=== PATIENT | male | born 1940 | race Caucasian/White ===

== ENCOUNTER 2017-07-02 02:41 | Emergency (ER) | payer MEDICARE, BC ==
[2017-07-02 03:05] VITALS: BP 129/90
[2017-07-02 03:39] LABS: CHLORIDE,CL 105 mmol/L (101-111); SODIUM,NA 140 mmol/L (135-145)
--- NOTE | 2017-07-02 04:47 | EDM.PDOC ---
ED HPI GENERAL MEDICAL PROBLEM - General Chief Complaint: Cardiovascular Problem Stated Complaint: SHORTNESS OF BREATH, DIZZY, NECK STIFFNESS Time Seen by Provider: 07/02/17 03:30 Source of Information: Reports: Patient History Limitations: Reports: No Limitations - History of Present Illness INITIAL COMMENTS - FREE TEXT/NARRATIVE: This 77 yo male patient reports to the ED with increased shortness of breath, neck stiffness and increased swelling in his lower extremities. The patient reports he was recently diagnosed with A fib and is on medications for control. The patient has an appointment with cardiology in 2 weeks for continued evaluation and further management. Onset: Today Duration: Constant, Improving Location: Reports: Neck, Chest Quality: Reports: Ache, Dull, Pressure Severity: Moderate Improves with: Reports: None Worsens with: Reports: None Associated Symptoms: Reports: No Other Symptoms Neck Pain Score (Numeric/FACES): 6 - Related Data Allergies Allergy/AdvReac Type Severity Reaction Status Date / Time No Known Allergies Allergy Verified 07/02/17 03:00 Home Meds: Home Meds Aspirin [Ecotrin] 81 mg PO .3 TIMES WEEKLY 06/21/14 [History] Doxazosin [Doxazosin Mesylate] 4 mg PO DAILY 06/21/14 [History] Finasteride [Proscar] 5 mg PO DAILY 06/21/14 [History] Lisinopril 40 mg PO DAILY 06/21/14 [History] NIFEdipine [Adalat cc] 60 mg PO DAILY 06/21/14 [History] Rosuvastatin [Crestor] 2.5 mg PO BEDTIME 06/21/14 [History] glyBURIDE [Glyburide] 5 mg PO DAILY 06/21/14 [History] Metoprolol Succinate [Toprol XL] 50 mg PO DAILY 07/02/17 [History] Rivaroxaban [Xarelto] 20 mg PO DAILY 07/02/17 [History] Past Medical History Cardiovascular History: Reports: High Cholesterol, Hypertension Respiratory History: Reports: None Gastrointestinal History: Reports: None Genitourinary History: Reports: None Musculoskeletal History: Reports: None Neurological History: Reports: None Psychiatric History: Reports: None Endocrine/Metabolic History: Reports: Diabetes, Type II Hematologic History: Reports: None Immunologic History: Reports: None Oncologic (Cancer) History: Reports: None Dermatologic History: Reports: None - Infectious Disease History Infectious Disease History: Reports: None - Past Surgical History Head Surgeries/Procedures: Reports: None Social & Family History - Tobacco Use Smoking Status *Q: Never Smoker Second Hand Smoke Exposure: No - Caffeine Use Caffeine Use: Reports: Coffee - Alcohol Use Days Per Week of Alcohol Use: 4 Number of Drinks Per Day: 3 Total Drinks Per Week: 12 - Recreational Drug Use Recreational Drug Use: No ED ROS GENERAL - Review of Systems Review Of Systems: ROS reveals no pertinent complaints other than HPI. ED EXAM, GENERAL - Physical Exam Exam: See Below Exam Limited By: No Limitations General Appearance: Alert, WD/WN, Moderate Distress Eye Exam: Bilateral Eye: EOMI, Normal Inspection, PERRL Ears: Normal External Exam, Normal Canal, Hearing Grossly Normal, Normal TMs Nose: Normal Inspection, Normal Mucosa, No Blood Throat/Mouth: Normal Inspection, Normal Lips, Normal Teeth, Normal Gums, Normal Oropharynx, Normal Voice, No Airway Compromise Head: Atraumatic, Normocephalic Neck: Normal Inspection, Supple, Non-Tender, Full Range of Motion Respiratory/Chest: No Respiratory Distress, Lungs Clear, Normal Breath Sounds, No Accessory Muscle Use, Chest Non-Tender Cardiovascular: No Gallop, No JVD, No Murmur, No Rub, Irregularly Irregular GI/Abdominal: Normal Bowel Sounds, Soft, Non-Tender, No Organomegaly, No Distention, No Abnormal Bruit, No Mass (Male) Exam: Deferred Rectal (Males) Exam: Deferred Back Exam: Normal Inspection, Full Range of Motion, NT Extremities: Normal Range of Motion, Non-Tender, Normal Capillary Refill, Pedal Edema (2+) Neurological: Alert, Oriented, CN II-XII Intact, Normal Cognition, Normal Gait, Normal Reflexes, No Motor/Sensory Deficits Psychiatric: Normal Affect, Normal Mood Skin Exam: Warm, Dry, Intact, Normal Color, No Rash Lymphatic: No Adenopathy Course - Vital Signs Last Recorded V/S: Last Vital Signs Temp 35.7 C 07/02/17 03:01 Pulse 137 H 07/02/17 03:01 Resp 18 07/02/17 03:01 BP 129/90 07/02/17 03:01 Pulse Ox 100 07/02/17 03:01 - Orders/Labs/Meds Orders: Active Orders 24 hr Category Date Time Status EKG 12 Lead [EKG Documentation Completion] [RC] STAT Care 07/02/17 03:21 Active Labs: Laboratory Tests 07/02/17 07/02/17 07/02/17 Range/Units 03:15 03:15 03:15 WBC 7.0 (5.0-10.0) 10^3/uL RBC 5.31 (4.6-6.2) 10^6/uL Hgb 15.5 (14.0-18.0) g/dL Hct 46.6 (40.0-54.0) % MCV 87.8 (80-100) fL MCH 29.2 (27.0-34.0) pg MCHC 33.3 (33.0-35.0) g/dL Plt Count 147 L (150-450) 10^3/uL Neut % (Auto) 66.3 (42.2-75.2) % Lymph % (Auto) 22.5 (20.5-50.1) % [place] % (Auto) 8.5 H (2-8) % Eos % (Auto) 2.4 (1.0-3.0) % Baso % (Auto) 0.3 (0.0-1.0) % Sodium 140 (135-145) mmol/L Potassium 4.2 (3.6-5.0) mmol/L Chloride 105 (101-111) mmol/L Carbon Dioxide 26.0 (21.0-31.0) mmol/L Anion Gap 13.2 BUN 18 (7-18) mg/dL Creatinine 0.9 (0.6-1.3) mg/dL Est Cr Clr Drug Dosing TNP Estimated GFR (MDRD) > 60 BUN/Creatinine Ratio 20.00 Glucose 153 H (74-105) mg/dL Calcium 8.9 (8.4-10.2) mg/dl Total Bilirubin 1.0 (0.2-1.0) mg/dL AST 21 (10-42) IU/L ALT 24 (10-60) IU/L Alkaline Phosphatase 38 L (42-121) IU/L Troponin I 0.02 (0.00-0.02) ng/ml B-Natriuretic Peptide 259 H (0-100) pg/ml Total Protein 7.2 (6.7-8.2) g/dl Albumin 4.2 (3.2-5.5) g/dl Globulin 3.0 Albumin/Globulin Ratio 1.40 Departure - Departure Time of Disposition: 04:43 Disposition: Home, Self-Care 01 Condition: Fair Clinical Impression: Shortness of breath Instructions: Shortness of Breath, [id number] Forms: ED Department Discharge Care Plan Goals: The patient was advised of the examination, lab and EKG results during the visit. The patient was encouraged to take his medications as directed. The patient should see the sound mixer as previously scheduled. If the patient has any additional symptoms or further concerns, the patient should either follow- up with his primary care provider or return to the emergency department. - My Orders Last 24 Hours: My Active Orders 07/02/17 03:21 EKG 12 Lead [EKG Documentation Completion] [RC] STAT - Assessment/Plan Last 24 Hours: My Active Orders 07/02/17 03:21 EKG 12 Lead [EKG Documentation Completion] [RC] STAT
--- NOTE | 2017-07-05 09:53 | EKG ---
07/02/2017- CHRISTEL GARCIA - EKG per my reading shows rapid atrial fibrillation at the rate of 120s. MOD /[id number]
== END 2017-07-02 04:53 | disposition home or self-care (01) ==
LOC: DL.ED 02:41
DX: R06.02 Shortness of breath (principal); E78.00 Pure hypercholesterolemia, unspecified; I10 Essential (primary) hypertension; E11.9 Type 2 diabetes mellitus without complications; Z79.82 Long term (current) use of aspirin; Z79.899 Other long term (current) drug therapy
CPT/HCPCS: 36415; 80053; 83880; 84484; 85025; 93005; 93010; 99282; 99285

== ENCOUNTER 2017-08-12 11:37 | Inpatient (IN) | payer MEDICARE, BC ==
--- NOTE | 2017-08-12 11:31 | EDM.PDOC ---
ED HPI GENERAL MEDICAL PROBLEM - General Chief Complaint: Cardiovascular Problem Stated Complaint: CHF. COMING FROM [facility] Time Seen by Provider: 08/12/17 11:30 Source of Information: Reports: Patient History Limitations: Reports: No Limitations - History of Present Illness INITIAL COMMENTS - FREE TEXT/NARRATIVE: 77 yo white male came from medical provider Dr. James for addmission for increase fluid retention. Pt. c/o SOB w/ Bilat leg edema X one month Onset Date: 07/12/17 Onset Time: 12:00 Duration: Week(s):, Getting Worse Location: Reports: Generalized Severity: Moderate Associated Symptoms: Reports: Other (edema and SOB) - Related Data Allergies Allergy/AdvReac Type Severity Reaction Status Date / Time No Known Allergies Allergy Verified 07/02/17 03:00 Home Meds: Home Meds Doxazosin [Doxazosin Mesylate] 4 mg PO DAILY 06/21/14 [History] Finasteride [Proscar] 5 mg PO DAILY 06/21/14 [History] Lisinopril 40 mg PO DAILY 06/21/14 [History] NIFEdipine [Adalat cc] 60 mg PO DAILY 06/21/14 [History] Rosuvastatin [Crestor] 2.5 mg PO BEDTIME 06/21/14 [History] glyBURIDE [Glyburide] 5 mg PO DAILY 06/21/14 [History] Metoprolol Succinate [Toprol XL] 100 mg PO DAILY 07/02/17 [History] Rivaroxaban [Xarelto] 20 mg PO DAILY 07/02/17 [History] Past Medical History Cardiovascular History: Reports: High Cholesterol, Hypertension Respiratory History: Reports: None Gastrointestinal History: Reports: None Genitourinary History: Reports: None Musculoskeletal History: Reports: None Neurological History: Reports: None Psychiatric History: Reports: None Endocrine/Metabolic History: Reports: Diabetes, Type II Hematologic History: Reports: None Immunologic History: Reports: None Oncologic (Cancer) History: Reports: None Dermatologic History: Reports: None - Infectious Disease History Infectious Disease History: Reports: None - Past Surgical History Head Surgeries/Procedures: Reports: None Social & Family History - Tobacco Use Smoking Status *Q: Never Smoker Second Hand Smoke Exposure: No - Caffeine Use Caffeine Use: Reports: Coffee - Alcohol Use Days Per Week of Alcohol Use: 4 Number of Drinks Per Day: 3 Total Drinks Per Week: 12 - Recreational Drug Use Recreational Drug Use: No ED ROS GENERAL - Review of Systems Review Of Systems: See Below Constitutional: Reports: No Symptoms HEENT: Reports: No Symptoms Respiratory: Reports: Shortness of Breath Cardiovascular: Reports: No Symptoms Endocrine: Reports: No Symptoms GI/Abdominal: Reports: Distension : Reports: No Symptoms Musculoskeletal: Reports: No Symptoms Skin: Reports: No Symptoms Neurological: Reports: No Symptoms Psychiatric: Reports: No Symptoms Hematologic/Lymphatic: Reports: No Symptoms Immunologic: Reports: No Symptoms ED EXAM, GENERAL - Physical Exam Exam: See Below Exam Limited By: No Limitations General Appearance: No Apparent Distress Eye Exam: Bilateral Eye: EOMI, PERRL Ears: Normal External Exam Nose: Normal Inspection Throat/Mouth: Normal Inspection, Normal Lips Head: Atraumatic, Normocephalic Neck: Normal Inspection, Supple, Non-Tender Respiratory/Chest: No Respiratory Distress, Lungs Clear, Normal Breath Sounds, No Accessory Muscle Use Cardiovascular: Irregularly Irregular Peripheral Pulses: 2+: Femoral (L), Femoral (R) GI/Abdominal: Distended (Male) Exam: No Hernia, Normal Inspection Back Exam: Normal Inspection Extremities: Pedal Edema (2-3 +) Neurological: Alert, Oriented, CN II-XII Intact, Normal Cognition Psychiatric: Normal Affect, Normal Mood Skin Exam: Warm, Dry, Intact Lymphatic: No Adenopathy Course - Vital Signs Last Recorded V/S: Last Vital Signs Temp 36.2 C 08/12/17 11:37 Pulse 119 H 08/12/17 11:37 Resp 18 08/12/17 11:37 BP 125/75 08/12/17 11:37 Pulse Ox 95 08/12/17 11:37 - Orders/Labs/Meds Orders: Active Orders 24 hr Category Date Time Status EKG 12 Lead [EKG Documentation Completion] [RC] STAT Care 08/12/17 12:15 Active Sodium Chloride 0.9% [Normal Saline] 1,000 ml Med 08/12/17 11:45 Active IV ASDIRECTED Medication Orders Sodium Chloride (Normal Saline) 1,000 mls @ 40 mls/hr IV ASDIRECTED KI Stop: 08/16/17 11:36 Last Admin: 08/12/17 11:54 Dose: 40 mls/hr Labs: Laboratory Tests 08/12/17 08/12/17 08/12/17 Range/Units 11:52 11:52 11:52 WBC 8.9 (5.0-10.0) 10^3/uL RBC 5.18 (4.6-6.2) 10^6/uL Hgb 14.8 (14.0-18.0) g/dL Hct 44.9 (40.0-54.0) % MCV 86.7 (80-100) fL MCH 28.6 (27.0-34.0) pg MCHC 33.0 (33.0-35.0) g/dL Plt Count 191 (150-450) 10^3/uL Neut % (Auto) 76.7 H (42.2-75.2) % Lymph % (Auto) 16.7 L (20.5-50.1) % [place] % (Auto) 5.5 (2-8) % Eos % (Auto) 0.9 L (1.0-3.0) % Baso % (Auto) 0.2 (0.0-1.0) % PT 13.3 H (9.0-12.0) SEC INR 1.3 H (0.9-1.2) APTT 30.5 (22.0-34.0) SEC D-Dimer, Quantitative 531 H (0-400) ng/mL Sodium 140 (135-145) mmol/L Potassium 4.0 (3.6-5.0) mmol/L Chloride 106 (101-111) mmol/L Carbon Dioxide 24.0 (21.0-31.0) mmol/L Anion Gap 14.0 BUN 21 H (7-18) mg/dL Creatinine 1.1 (0.6-1.3) mg/dL Est Cr Clr Drug Dosing TNP Estimated GFR (MDRD) > 60 BUN/Creatinine Ratio 19.09 Glucose 127 H (74-105) mg/dL Calcium 8.7 (8.4-10.2) mg/dl Total Bilirubin 0.8 (0.2-1.0) mg/dL AST 19 (10-42) IU/L ALT 22 (10-60) IU/L Alkaline Phosphatase 46 (42-121) IU/L Troponin I (0.00-0.02) ng/ml B-Natriuretic Peptide 365 H (0-100) pg/ml Total Protein 7.3 (6.7-8.2) g/dl Albumin 4.0 (3.2-5.5) g/dl Globulin 3.3 Albumin/Globulin Ratio 1.21 08/12/17 Range/Units 11:52 WBC (5.0-10.0) 10^3/uL RBC (4.6-6.2) 10^6/uL Hgb (14.0-18.0) g/dL Hct (40.0-54.0) % MCV (80-100) fL MCH (27.0-34.0) pg MCHC (33.0-35.0) g/dL Plt Count (150-450) 10^3/uL Neut % (Auto) (42.2-75.2) % Lymph % (Auto) (20.5-50.1) % [place] % (Auto) (2-8) % Eos % (Auto) (1.0-3.0) % Baso % (Auto) (0.0-1.0) % PT (9.0-12.0) SEC INR (0.9-1.2) APTT (22.0-34.0) SEC D-Dimer, Quantitative (0-400) ng/mL Sodium (135-145) mmol/L Potassium (3.6-5.0) mmol/L Chloride (101-111) mmol/L Carbon Dioxide (21.0-31.0) mmol/L Anion Gap BUN (7-18) mg/dL Creatinine (0.6-1.3) mg/dL Est Cr Clr Drug Dosing Estimated GFR (MDRD) BUN/Creatinine Ratio Glucose (74-105) mg/dL Calcium (8.4-10.2) mg/dl Total Bilirubin (0.2-1.0) mg/dL AST (10-42) IU/L ALT (10-60) IU/L Alkaline Phosphatase (42-121) IU/L Troponin I < 0.02 (0.00-0.02) ng/ml B-Natriuretic Peptide (0-100) pg/ml Total Protein (6.7-8.2) g/dl Albumin (3.2-5.5) g/dl Globulin Albumin/Globulin Ratio Meds: Medications Generic Name Dose Route Start Last Admin Trade Name Freq PRN Reason Stop Dose Admin Sodium Chloride 1,000 mls @ 40 mls/hr 09/15/17 11:45 08/12/17 11:54 Normal Saline IV 08/16/17 11:36 40 mls/hr ASDIRECTED KI Administration Discontinued Medications Generic Name Dose Route Start Last Admin Trade Name Jesus PRN Reason Stop Dose Admin Furosemide 40 mg 08/12/17 12:48 08/12/17 12:52 Lasix IVPUSH 08/12/17 12:49 40 mg NOW ONE Administration Departure - Departure Time of Disposition: 13:26 Disposition: Admitted As Inpatient 65 Condition: Fair Clinical Impression: CHF (congestive heart failure) Qualifiers: Congestive heart failure type: diastolic Congestive heart failure chronicity: acute Qualified Code(s): I50.31 - Acute diastolic (congestive) heart failure Clinical Impression: (Ruled Out): Change in mental status Referrals: Damian Aguilera MD [Primary Care Provider] - Forms: ED Department Discharge - My Orders Last 24 Hours: My Active Orders 08/12/17 11:45 Sodium Chloride 0.9% [Normal Saline] 1,000 ml IV ASDIRECTED 08/12/17 12:15 EKG 12 Lead [EKG Documentation Completion] [RC] STAT - Assessment/Plan Last 24 Hours: My Active Orders 08/12/17 11:45 Sodium Chloride 0.9% [Normal Saline] 1,000 ml IV ASDIRECTED 08/12/17 12:15 EKG 12 Lead [EKG Documentation Completion] [RC] STAT
[2017-08-12] MEDS ORDERED: Sodium Chloride 0.9% 1,000 ML IV SCH (11:45)
[2017-08-12 12:17] LABS: CHLORIDE,CL 106 mmol/L (101-111); SODIUM,NA 140 mmol/L (135-145)
--- NOTE | 2017-08-12 12:31 | CR ---
CLINICAL HISTORY: PA lateral chest 77-year-old hypertensive, diabetic male with shortness of breath f or the past month (pedal edema). INTERPRETATION: Abnormal. Large heart with generalized mild venous congestion (cephalization) and pleural effusion on the right . No alveolar edema. No lung mass, hilar lymphadenopathy or focal lobar pneumonia. CONCLUSION: Mild CHF.
[2017-08-12] MEDS ORDERED: Furosemide 40 MG/4 ML VIAL IVPUSH ONE (12:48)
[2017-08-12] MEDS ORDERED: Sodium Chloride 0.9% 10 ML Syringe FLUSH PRN (13:55)
[2017-08-12] MEDS ORDERED: Acetaminophen 325 MG Tab PO PRN (13:55)
[2017-08-12] MEDS ORDERED: Metoprolol Succinate 50 MG Tab.ER PO ONE (17:03)
--- NOTE | 2017-08-12 18:03 | HP ---
CHIEF COMPLAINT: Fluid retention and shortness of breath. HISTORY OF PRESENT ILLNESS: The patient is a 77-year-old gentleman, who was admitted through the emergency room because for the last one week, he has been having some fluid retention and weight gain, and the patient was seen by Dr. Melissa at the clinic today for followup and was noted to have some ascites from the recent CAT scan of the abdomen and pelvis that was done and because of this, he was sent to the emergency room for further evaluation and management, and the patient was first noted to be in congestive heart failure. The patient denies though any chest pain or palpitation. Denies any fever or chills, abdominal pain, nausea, vomiting, nor any other complaints. PAST MEDICAL HISTORY: Remarkable for recent diagnosis of atrial fibrillation. The patient recently had an echocardiogram, which showed some diastolic dysfunction. An ejection fraction is good. He has also history of hypertension, type 2 diabetes mellitus. FAMILY HISTORY: Noncontributory. SOCIAL HISTORY: The patient is , nonsmoker, occasional alcohol drinker. HOME MEDICATIONS: 1. Toprol-XL 100 mg daily. 2. Lisinopril 40 mg daily. 3. Finasteride. 4. Doxazosin. 5. Glyburide. 6. Rosuvastatin. 7. Xarelto. 8. Nifedipine. ALLERGIES: No known drug allergies. REVIEW OF SYSTEMS: As in HPI. The rest of the review of systems is negative. PHYSICAL EXAMINATION: General: The patient is alert and oriented, not in any acute distress. HEENT: Normocephalic. There is pink palpebral conjunctiva. Sclerae anicteric. There is mild hepatic jugular reflex and mild JVD. Neck: Supple. Heart: Regular. Ventricular response slightly tachycardic. Lungs: Diminished breath sounds on both bases, but no significant crackles. No wheezing. Abdomen: Obese and protuberant, soft and nontender. Bowel sounds are positive. Extremities: Remarkable for 2+ bilateral pedal edema. No calf tenderness. No signs of cellulitis. LABORATORY WORKUP: CBC is unremarkable. Comp panel; BUN is 21, glucose is 127, the rest of the panel unremarkable. BNP is 365. Troponin is less than 0.02. Chest x-ray is remarkable for mild CHF. ADMITTING DIAGNOSES: 1. Congestive heart failure exacerbation/diastolic dysfunction. 2. Atrial fibrillation with rapid ventricular response. 3. Obesity. 4. Hypertension. 5. Type 2 diabetes mellitus. 6. Benign prostatic hypertrophy. TREATMENT PLAN: The patient is going to be admitted to telemetry floor. We will continue his home medication, we will also give him some IV Lasix, and we will also control the heart rate. The rest of the management as necessary. The patient is a full code. [facility] /[id number]
[2017-08-12] MEDS: Doxazosin 2 MG Tab PO SCH (20:35)
[2017-08-12] MEDS: Rivaroxaban 10 MG Tab PO SCH (20:36)
[2017-08-12] MEDS: Rosuvastatin 10 MG Tab PO SCH (20:37)
[2017-08-13 07:07] LABS: CHLORIDE,CL 102 mmol/L (101-111); SODIUM,NA 143 mmol/L (135-145)
[2017-08-13] MEDS ORDERED: Lisinopril 20 MG Tab PO SCH (09:00)
[2017-08-13] MEDS ORDERED: Metoprolol Succinate 50 MG Tab.ER PO SCH (09:00)
[2017-08-13] MEDS: glyBURIDE 5 MG Tab PO SCH (09:04)
[2017-08-13] MEDS: Docusate Sodium 100 MG Cap PO SCH (09:04)
[2017-08-13] MEDS: Finasteride 5 MG Tab PO SCH (09:05)
[2017-08-13] MEDS: Furosemide 40 MG/4 ML VIAL IVPUSH SCH (09:05)
[2017-08-13] MEDS: Lisinopril 20 MG Tab PO SCH (09:05)
--- NOTE | 2017-08-13 09:53 | PN ---
DATE: 08/13/2017 SUBJECTIVE: The patient had a good diuresis yesterday, total of 3 L and the patient is feeling better this morning. He remained in atrial fibrillation with ventricular response. He is now within normal limits. The patient denies any chest pain, shortness of breath, abdominal pain, nausea, vomiting, nor any other complaints. LABORATORY WORKUP: This morning; Chem-6, glucose is 127, potassium is 3.8, sodium 143, BUN is 16, creatinine is 1.1. OBJECTIVE: Vital Signs: Blood pressure is 129/90, pulse 69, respiration of 20, temperature of 97.5. Heart: Irregular ventricular response within normal limits. Lungs: Equal bilaterally. No crackles. No wheezing. Abdomen: Obese, otherwise soft and nontender. Bowel sounds are positive. Extremities: Remarkable for 1+ bilateral pedal edema. No calf tenderness. MEDICATIONS: Reviewed. PLAN: We will continue with his present management. We will continue with IV Lasix today and hopefully, we can switch this to oral Lasix in a.m. 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 We will recheck a basic metabolic panel in a.m. [facility] /[id number]
[2017-08-13] MEDS ORDERED: Metoprolol Succinate 50 MG Tab.ER PO ONE (19:12)
[2017-08-13] MEDS: Doxazosin 2 MG Tab PO SCH (20:22)
[2017-08-13] MEDS: Rosuvastatin 10 MG Tab PO SCH (20:23)
[2017-08-13] MEDS: Rivaroxaban 10 MG Tab PO SCH (20:23)
[2017-08-13] MEDS ORDERED: Doxazosin 2 MG Tab PO SCH (21:00)
[2017-08-13] MEDS ORDERED: Rivaroxaban 10 MG Tab PO SCH (21:00)
[2017-08-14 06:55] LABS: CHLORIDE,CL 100 mmol/L (101-111); SODIUM,NA 141 mmol/L (135-145)
--- NOTE | 2017-08-14 09:51 | PN ---
DATE: 08/14/2017 SUBJECTIVE: The patient, yesterday afternoon, had an episode of some mild chest discomfort and some shortness of breath, and we did a troponin on him, and it just came back within normal limits. We also did an EKG, and EKG still showed atrial fibrillation with slight tachycardia but no acute changes. We did increase his Toprol-XL to 200 mg a day, and the patient has been doing fairly well, although, he mentioned this morning again that when he woke up, he had again some brief episodes of shortness of breath. The patient denies though any lightheadedness, syncope, orthopnea, PND, nor any other complaints; and telemetry this morning is atrial fibrillation, but ventricular response is better and within normal limits. OBJECTIVE: Vital Signs: Blood pressure is 140/81, pulse of 62, respirations 20, and temperature of 97.3. Heart: Irregular. Ventricular response within normal limits. No gallops. No rubs. Lungs: Equal bilaterally. No crackles. No wheezing. Abdomen: Obese. Otherwise soft and nontender. Bowel sounds positive. Extremities: Remarkable for trace to 1+ bilateral pedal edema. LABORATORY DATA: Lab workup this morning: Chem-6; sodium is 141, potassium is 4.1, chloride of 100, glucose is 140. The rest of the panel is unremarkable. MEDICATIONS: Reviewed. PLAN: We will continue with his present management. I am going to hold his discharge today as the patient is still complaining of episodic shortness of breath, and we will continue him on his telemetry. I am going to discontinue the IV Lasix. We will change this to oral Lasix 20 mg daily. [facility] /[id number]
[2017-08-14] MEDS: glyBURIDE 5 MG Tab PO SCH (10:12)
[2017-08-14] MEDS: Lisinopril 20 MG Tab PO SCH (10:12)
[2017-08-14] MEDS: Furosemide 20 MG Tab PO SCH (10:13)
[2017-08-14] MEDS: Finasteride 5 MG Tab PO SCH (10:13)
[2017-08-14] MEDS: Docusate Sodium 100 MG Cap PO SCH (10:13)
[2017-08-14] MEDS: Metoprolol Succinate 50 MG Tab.ER PO SCH (10:13)
[2017-08-14] MEDS: Furosemide 40 MG/4 ML VIAL IVPUSH SCH (15:57)
[2017-08-14] MEDS: Doxazosin 2 MG Tab PO SCH (23:33)
[2017-08-14] MEDS: Rivaroxaban 10 MG Tab PO SCH (23:33)
[2017-08-14] MEDS: Rosuvastatin 10 MG Tab PO SCH (23:34)
[2017-08-15] MEDS: Lisinopril 20 MG Tab PO SCH (08:31)
[2017-08-15] MEDS: Docusate Sodium 100 MG Cap PO SCH (08:31)
[2017-08-15] MEDS: Furosemide 20 MG Tab PO SCH (08:31)
[2017-08-15] MEDS: Finasteride 5 MG Tab PO SCH (08:31)
[2017-08-15] MEDS: glyBURIDE 5 MG Tab PO SCH (08:31)
[2017-08-15] MEDS: Metoprolol Succinate 50 MG Tab.ER PO SCH (08:32)
--- NOTE | 2017-08-15 10:21 | PCM.DCSUM1 ---
Discharge Summary - Hospital Course Free Text/Narrative:: 77 y/o male with PMH of atrial fibrillation, diastolic dysfunction, hypertension , diabetes mellitus presented to the emergency room for having fluid retention, gaining weight, lower extremities edema, and exertional shortness breaths on admission. recently had CT scan showed some ascites. He denies chest pain, palpitation, nausea, vomiting, or any other symptoms and admissions. He was given IV digoxin and diltiazem and his metoprolol succinate was increased from 100 to 200 mg daily. He was put on IV Lasix. He lost about 11 pounds since he was admitted. Patient felt much better and his lower extremities edema resolved. He is not short of breath. During the hospitalization patient had some episodes were he would feel flushed, having shallow breathing, and heart rate goes up. This episodes lost seconds to a few minutes and occurred about 4 times. Patient thinks he has some anxiety going on. He denies depression or being homicidal or suicidal. Patient feels back to his normal and even better and wants to go home. He was discharged home on same dose of lisinopril and the increased dose of Toprol. He was not receiving nifedipine during this hospitalization. So I will hold his nifedipine since his metoprolol was increased. He has appointment this Tuesday with cardiology in [place]. He was advised to see his primary care provider within one week discuss anxiety as well. Admission workup: CBC unremarkable. BNP 365. Troponin less than 0.02. Chest x- ray is remarkable for moderate CHF. Repeat troponin continue to be less than 0.02. - Discharge Data Discharge Date: 08/15/17 Discharge Disposition: Home, Self-Care 01 Condition: Stable - Discharge Diagnosis/Problem(s) (1) Atrial fibrillation with RVR SNOMED Code(s): 943961999352477 ICD Code: I48.91 - UNSPECIFIED ATRIAL FIBRILLATION Status: Acute Current Visit: Yes (2) Anxiety SNOMED Code(s): 17459658 ICD Code: F41.9 - ANXIETY DISORDER, UNSPECIFIED Status: Acute Current Visit: Yes (3) CHF (congestive heart failure) SNOMED Code(s): 52724373 ICD Code: I50.9 - HEART FAILURE, UNSPECIFIED Status: Acute Current Visit : Yes Qualifiers: Congestive heart failure type: diastolic Congestive heart failure chronicity: acute Qualified Code(s): I50.31 - Acute diastolic (congestive) heart failure (4) Shortness of breath SNOMED Code(s): 089255827 ICD Code: R06.02 - SHORTNESS OF BREATH Status: Acute Current Visit: No - Discharge Plan Prescriptions/Med Rec: Furosemide [Lasix] 20 mg PO DAILY #30 tablet Metoprolol Succinate [Toprol XL] 200 mg PO DAILY #30 tab.er Home Medications: Home Meds Doxazosin [Cardura] 4 mg PO BEDTIME 06/21/14 [History] Finasteride [Proscar] 5 mg PO DAILY 06/21/14 [History] Lisinopril 20 mg PO DAILY 06/21/14 [History] Rosuvastatin [Crestor] 2.5 mg PO BEDTIME 06/21/14 [History] glyBURIDE [Glyburide] 5 mg PO DAILY 06/21/14 [History] Rivaroxaban [Xarelto] 20 mg PO BEDTIME 07/02/17 [History] Furosemide [Lasix] 20 mg PO DAILY #30 tablet 08/15/17 [Rx] Metoprolol Succinate [Toprol XL] 200 mg PO DAILY #30 tab.er 08/15/17 [Rx] Referrals: Damian Aguilera MD [Primary Care Provider] - - Review of Systems General: Reports: No Symptoms HEENT: Reports: No Symptoms Pulmonary: Denies: Cough, Wheezing Gastrointestinal: Reports: No Symptoms Genitourinary: Reports: No Symptoms Musculoskeletal: Reports: No Symptoms Skin: Reports: No Symptoms Neurological: Reports: No Symptoms Psychiatric: Reports: No Symptoms - Patient Data Vitals - Most Recent: Last Vital Signs Temp 36.3 C 08/15/17 07:56 Pulse 87 08/15/17 08:32 Resp 20 08/15/17 07:56 BP 142/90 H 08/15/17 08:32 Pulse Ox 97 08/15/17 07:56 Weight - Most Recent: 115.122 kg I&O - Last 24 hours: Intake & Output 08/14/17 08/15/17 08/15/17 22:59 06:59 14:59 Intake Total 200 250 270 Output Total 850 1000 300 Balance -650 -750 -30 Lab Results - Last 24 hrs: Laboratory Results - last 24 hr 08/14/17 08/14/17 08/15/17 Range/Units 11:01 16:58 07:33 POC Glucose 179 H 71 L 145 H (83-110) mg/dl Med Orders - Current: Current Medications Acetaminophen (Tylenol) 650 mg PO Q4H PRN PRN Reason: Pain (Mild 1-3)/fever Docusate Sodium (Colace) 200 mg PO DAILY [facility] Last Admin: 08/15/17 08:31 Dose: 200 mg Doxazosin Mesylate (Cardura) 4 mg PO BEDTIME [facility] Last Admin: 08/14/17 23:33 Dose: 4 mg Finasteride (Proscar) 5 mg PO DAILY [facility] Last Admin: 08/15/17 08:31 Dose: 5 mg Furosemide (Lasix) 20 mg PO DAILY [facility] Last Admin: 08/15/17 08:31 Dose: 20 mg Glyburide (Micronase) 5 mg PO WITHBREAKFAST [facility] Last Admin: 08/15/17 08:31 Dose: 5 mg Lisinopril (Prinivil) 20 mg PO DAILY [facility] Last Admin: 08/15/17 08:31 Dose: 20 mg Metoprolol Succinate (Toprol Xl) 200 mg PO DAILY [facility] Last Admin: 08/15/17 08:32 Dose: 200 mg Rivaroxaban (Xarelto) 20 mg PO BEDTIME [facility] Last Admin: 08/14/17 23:33 Dose: 20 mg Rosuvastatin Calcium (Crestor) 2.5 mg PO BEDTIME [facility] Last Admin: 08/14/17 23:34 Dose: 2.5 mg Sodium Chloride (Saline Flush) 10 ml FLUSH ASDIRECTED PRN PRN Reason: Keep Vein Open Last Admin: 08/13/17 09:17 Dose: 10 ml Discontinued Medications Doxazosin Mesylate (Cardura) 4 mg PO BEDTIME [facility] Furosemide (Lasix) 40 mg IVPUSH NOW ONE Stop: 08/12/17 12:49 Last Admin: 08/12/17 12:52 Dose: 40 mg Furosemide (Lasix) 40 mg IVPUSH DAILY [facility] Last Admin: 08/14/17 15:57 Dose: Not Given Sodium Chloride (Normal Saline) 1,000 mls @ 40 mls/hr IV ASDIRECTED [facility] Stop: 08/16/17 11:36 Last Infusion: 08/12/17 17:05 Dose: 40 mls/hr Lisinopril (Prinivil) 40 mg PO DAILY [facility] Metoprolol Succinate (Toprol Xl) 150 mg PO DAILY [facility] Last Admin: 08/13/17 09:06 Dose: 150 mg Metoprolol Succinate (Toprol Xl) 50 mg PO ONETIME ONE Stop: 08/12/17 17:04 Last Admin: 08/12/17 17:51 Dose: 50 mg Metoprolol Succinate (Toprol Xl) 50 mg PO ONETIME ONE Stop: 08/13/17 19:13 Last Admin: 08/13/17 20:21 Dose: 50 mg Rivaroxaban (Xarelto) 20 mg PO BEDTIME KI - Exam General: Reports: Alert, Oriented, Cooperative, No Acute Distress HEENT: Reports: Pupils Equal, Pupils Reactive, EOMI, Mucous Membr. Moist/[place] Neck: Reports: Supple, Trachea Midline, No JVD Lungs: Reports: Clear to Auscultation, Normal Respiratory Effort Cardiovascular: Reports: Irregular Rhythm GI/Abdominal Exam: Normal Bowel Sounds, Soft, Non-Tender, No Organomegaly, No Distention, No Abnormal Bruit, No Mass, Pelvis Stable (Male) Exam: Deferred Rectal (Males) Exam: Deferred Back Exam: Reports: Normal Inspection, Full Range of Motion Extremities: Normal Inspection, Normal Range of Motion, Non-Tender, No Pedal Edema, Normal Capillary Refill Skin: Reports: Warm, Dry, Intact Neurological: Reports: No New Focal Deficit Psy/Mental Status: Reports: Alert, Normal Affect, Normal Mood *Q Meaningful Use (DIS) - VTE *Q VTE Criteria *Q: - Stroke *Q Stroke Criteria *Q: - AMI *Q AMI Criteria *Q:
[2017-08-15 12:34] VITALS: BP 141/88
--- NOTE | 2017-08-17 10:03 | EKG ---
08/12/2017 - CHRISTEL GARCIA A - TIME: 11:42 a.m. EKG is atrial fibrillation with a rate of 119. [place] is within normal limits. There is poor R-wave progression and nonspecific ST-T wave changes in the inferolateral leads. IMPRESSION: Abnormal EKG as noted above. [facility] /[id number]
--- NOTE | 2017-08-17 10:09 | EKG ---
08/13/2017 - CHRISTEL GARCIA A - TIME: 1658 hours. EKG is atrial fibrillation with a rate of 110. There is poor R-wave progression and nonspecific ST-T wave changes in the inferior leads. IMPRESSION: Abnormal EKG as noted above. [facility] /[id number]
== END 2017-08-15 13:32 | disposition home or self-care (01) | DRG 293 ==
LOC: DL.ED 11:37 → UNDOADMIN 13:45 → DL.MS 13:45
PROVIDERS: ADMIT Internal Medicine; ATTEND Internal Medicine
DX: I50.31 Acute diastolic (congestive) heart failure (principal); E78.00 Pure hypercholesterolemia, unspecified; I48.91 Unspecified atrial fibrillation; R06.02 Shortness of breath; I10 Essential (primary) hypertension; E11.9 Type 2 diabetes mellitus without complications; N40.0 Benign prostatic hyperplasia without lower urinary tract symptoms; F41.9 Anxiety disorder, unspecified; E66.9 Obesity, unspecified; Z68.38 Body mass index [BMI] 38.0-38.9, adult; Z79.899 Other long term (current) drug therapy
CPT/HCPCS: 36415; 71020; 80053; 83880; 84484; 85025; 85379; 85610; 85730; 93005; 93010; 96361; 96374; 99284; 99285; J1940; J7030; 80048; 82962; A9270-GY; J7050

== ENCOUNTER 2020-06-21 07:30 | Observation (INO) | payer MEDICARE, BC ==
--- NOTE | 2020-06-21 08:01 | EDM.PDOC ---
ED HPI GENERAL MEDICAL PROBLEM - General Chief Complaint: Syncope Time Seen by Provider: 06/21/20 08:01 Source of Information: Reports: Patient, RN, RN Notes Reviewed History Limitations: Reports: No Limitations - History of Present Illness INITIAL COMMENTS - FREE TEXT/NARRATIVE: Patient presents to ER per [place] [facility] with complaint of weakness. Patient states last evening he attempted to get up to go to the bathroom several times and was unable to make it to the bathroom, was incontinent on his way to the bathroom. Patient states he felt as though his head was full and he was very weak. States he got up from the bed and was unable to stand slid against the bed down to a sitting position on the floor. Denies hitting his head or getting knocked out, or injuring himself. Patient denies any fever chills, cough, shortness of breath, chest pains, nausea, vomiting, diarrhea. Patient denies dysuria, only incontinence during the night last night which is abnormal for him. Patient denies any exposure to COVID. Onset: Gradual - Related Data Allergies Allergy/AdvReac Type Severity Reaction Status Date / Time No Known Allergies Allergy Verified 07/02/17 03:00 Home Meds: Home Meds Doxazosin [Cardura] 4 mg PO BEDTIME 06/21/14 [History] Finasteride [Proscar] 5 mg PO DAILY 06/21/14 [History] Rosuvastatin [Crestor] 2.5 mg PO BEDTIME 06/21/14 [History] glyBURIDE [Glyburide] 2.5 mg PO DAILY 06/21/14 [History] Rivaroxaban [Xarelto] 20 mg PO BEDTIME 07/02/17 [History] Isosorbide Mononitrate [Imdur] 60 mg PO DAILY 05/29/19 [History] Metoprolol Succinate [Toprol XL 100mg] 100 mg PO DAILY 05/29/19 [History] Omeprazole 1 cap PO DAILY 06/21/20 [History] lisinopriL [Lisinopril] 1 tab PO DAILY 06/21/20 [History] Past Medical History HEENT History: Reports: None Cardiovascular History: Reports: Heart Failure, High Cholesterol, Hypertension Respiratory History: Reports: None, SOB Other Respiratory History: Pleural effusions Gastrointestinal History: Reports: None Genitourinary History: Reports: BPH, Other (See Below) Other Genitourinary History: recent UTI Musculoskeletal History: Reports: None Neurological History: Reports: None Psychiatric History: Reports: None Endocrine/Metabolic History: Reports: Diabetes, Type II Hematologic History: Reports: None Immunologic History: Reports: None Oncologic (Cancer) History: Reports: None Dermatologic History: Reports: None - Infectious Disease History Infectious Disease History: Reports: Chicken Pox, Measles, Mumps - Past Surgical History Head Surgeries/Procedures: Reports: None HEENT Surgical History: Reports: None Cardiovascular Surgical History: Reports: Other (See Below) Other Cardiovascular Surgeries/Procedures: angiogram 2017 Respiratory Surgical History: Reports: None Musculoskeletal Surgical History: Reports: Knee Replacement, Shoulder Surgery Social & Family History - Family History Cardiac: Reports: Hypertension Oncologic: Reports: Bone - Caffeine Use Caffeine Use: Reports: Coffee ED ROS GENERAL - Review of Systems Review Of Systems: Comprehensive ROS is negative, except as noted in HPI. ED EXAM, NEURO - Physical Exam Exam: See Below Exam Limited By: No Limitations General Appearance: Alert, WD/WN, No Apparent Distress Eye Exam: Bilateral Eye: EOMI, Normal Inspection Ears: Normal External Exam, Hearing Grossly Normal Nose: Normal Inspection Throat/Mouth: Normal Inspection, Normal Voice, No Airway Compromise Head Exam: Atraumatic, Normocephalic Neck: Normal Inspection, Supple, Non-Tender, Full Range of Motion Respiratory/Chest: No Respiratory Distress, Lungs Clear, Normal Breath Sounds, No Accessory Muscle Use, Chest Non-Tender Cardiovascular: Normal Peripheral Pulses, No Edema, No Gallop, No JVD, No Murmur, No Rub, Irregularly Irregular (atrial fibrillation) GI/Abdominal: Normal Bowel Sounds, Soft, Non-Tender, No Organomegaly, No Distention, No Abnormal Bruit, No Mass (Male) Exam: Deferred Rectal (Males) Exam: Deferred Neurological: Alert, Normal Mood/Affect, Normal Dorsiflexion, CN II-XII Intact, Oriented x 3 Back Exam: Normal Inspection, Full Range of Motion Extremities: Normal Inspection, Normal Range of Motion, Non-Tender, No Pedal Edema, Normal Capillary Refill Psychiatric: Normal Affect, Normal Mood Skin Exam: Warm, Dry, Intact, Normal Color, No Rash Course - Vital Signs Last Recorded V/S: Last Vital Signs Temp 97.4 F 06/21/20 07:51 Pulse 77 06/21/20 07:51 Resp 26 H 06/21/20 07:51 BP 155/71 H 06/21/20 07:51 Pulse Ox 95 06/21/20 07:51 - Orders/Labs/Meds Orders: Active Orders 24 hr Category Date Time Status Admission Diagnosis [ADT] Stat ADT 06/21/20 10:15 Ordered Admission Status [Patient Status] [ADT] Routine ADT 06/21/20 10:15 Active EKG Documentation Completion [RC] STAT Care 06/21/20 07:58 Active EKG Documentation Completion [RC] STAT Care 06/21/20 09:01 Active EKG Documentation Completion [RC] STAT Care 06/21/20 12:10 Active CULTURE URINE [RM] Stat Lab 06/21/20 08:05 Received TROPONIN I [CHEM] Stat Lab 06/21/20 12:10 Ordered Sodium Chloride 0.9% [Normal Saline] 1,000 ml Med 06/21/20 09:15 Active IV .BOLUS Medication Orders Sodium Chloride (Normal Saline) 1,000 mls @ 150 mls/hr IV .BOLUS ONE Stop: 06/21/20 15:54 Last Admin: 06/21/20 09:25 Dose: 150 mls/hr Documented by: [email or web address] Labs: Laboratory Tests 06/21/20 06/21/20 06/21/20 Range/Units 08:05 08:08 08:08 WBC 14.7 H (5.0-10.0) 10^3/uL RBC 5.57 (4.6-6.2) 10^6/uL Hgb 16.0 (14.0-18.0) g/dL Hct 46.3 (40.0-54.0) % MCV 83.1 D (80-100) fL MCH 28.7 (27.0-34.0) pg MCHC 34.6 (33.0-35.0) g/dL Plt Count 118 L (150-450) 10^3/uL Neut % (Auto) 86.8 H (42.2-75.2) % Lymph % (Auto) 5.3 L (20.5-50.1) % Fisher % (Auto) 7.7 (2-8) % Eos % (Auto) 0.1 L (1.0-3.0) % Baso % (Auto) 0.1 (0.0-1.0) % PT 14.5 H (9.0-12.0) SEC INR 1.5 H (0.9-1.2) Sodium (136-145) mmol/L Potassium (3.5-5.1) mmol/L Chloride (98-107) mmol/L Carbon Dioxide (21-32) mmol/L Anion Gap (7-13) mEq/L BUN (7-18) mg/dL Creatinine (0.70-1.30) mg/dL Est Cr Clr Drug Dosing mL/min Estimated GFR (MDRD) BUN/Creatinine Ratio (No establ ref range) Glucose (74-99) mg/dL Calcium (8.5-10.1) mg/dL Total Bilirubin (0.2-1.0) mg/dL AST (15-37) U/L ALT (16-63) U/L Alkaline Phosphatase (46-116) U/L Troponin I (0.000-0.056) ng/mL B-Natriuretic Peptide (0-100) pg/ml Total Protein (6.4-8.2) g/dL Albumin (3.4-5.0) g/dL Globulin Albumin/Globulin Ratio Urine Color Dark yellow (YELLOW) Urine Appearance Turbid (CLEAR) Urine pH 6.0 (5.0-9.0) Ur Specific [place] >= 1.030 (1.005-1.030) Urine Protein >=300 H (NEGATIVE) Urine Glucose (UA) Negative (NEGATIVE) Urine Ketones Negative (NEGATIVE) Urine Occult Blood Moderate H (NEGATIVE) Urine Nitrite Positive H (NEGATIVE) Urine Bilirubin Negative (NEGATIVE) Urine Urobilinogen 1.0 (0.2-1.0) mg/dL Ur Leukocyte Esterase Trace H (NEGATIVE) Urine RBC 5-10 H /HPF Urine WBC 50-75 H (0-5/HPF) /HPF Ur Epithelial Cells Rare (NOT SEEN) /HPF Amorphous Sediment Few (NOT SEEN) /HPF Urine Bacteria Many H (0-FEW/HPF) /HPF Urine Mucus Not seen (NOT SEEN) /LPF Ethyl Alcohol (0) mg/dL 06/21/20 06/21/20 Range/Units 08:08 08:08 WBC (5.0-10.0) 10^3/uL RBC (4.6-6.2) 10^6/uL Hgb (14.0-18.0) g/dL Hct (40.0-54.0) % MCV (80-100) fL MCH (27.0-34.0) pg MCHC (33.0-35.0) g/dL Plt Count (150-450) 10^3/uL Neut % (Auto) (42.2-75.2) % Lymph % (Auto) (20.5-50.1) % Fisher % (Auto) (2-8) % Eos % (Auto) (1.0-3.0) % Baso % (Auto) (0.0-1.0) % PT (9.0-12.0) SEC INR (0.9-1.2) Sodium 136 (136-145) mmol/L Potassium 3.4 L (3.5-5.1) mmol/L Chloride 100 (98-107) mmol/L Carbon Dioxide 26 (21-32) mmol/L Anion Gap 13.4 H (7-13) mEq/L BUN 15 (7-18) mg/dL Creatinine 1.08 (0.70-1.30) mg/dL Est Cr Clr Drug Dosing 57.13 mL/min Estimated GFR (MDRD) > 60 BUN/Creatinine Ratio 13.9 (No establ ref range) Glucose 176 H (74-99) mg/dL Calcium 8.3 L (8.5-10.1) mg/dL Total Bilirubin 2.0 H (0.2-1.0) mg/dL AST 14 L (15-37) U/L ALT 13 L (16-63) U/L Alkaline Phosphatase 48 (46-116) U/L Troponin I 0.062 H* (0.000-0.056) ng/mL B-Natriuretic Peptide 910 H (0-100) pg/ml Total Protein 7.3 (6.4-8.2) g/dL Albumin 3.7 (3.4-5.0) g/dL Globulin 3.6 Albumin/Globulin Ratio 1.0 Urine Color (YELLOW) Urine Appearance (CLEAR) Urine pH (5.0-9.0) Ur Specific [place] (1.005-1.030) Urine Protein (NEGATIVE) Urine Glucose (UA) (NEGATIVE) Urine Ketones (NEGATIVE) Urine Occult Blood (NEGATIVE) Urine Nitrite (NEGATIVE) Urine Bilirubin (NEGATIVE) Urine Urobilinogen (0.2-1.0) mg/dL Ur Leukocyte Esterase (NEGATIVE) Urine RBC /HPF Urine WBC (0-5/HPF) /HPF Ur Epithelial Cells (NOT SEEN) /HPF Amorphous Sediment (NOT SEEN) /HPF Urine Bacteria (0-FEW/HPF) /HPF Urine Mucus (NOT SEEN) /LPF Ethyl Alcohol < 3 (0) mg/dL Meds: Medications Generic Name Dose Route Start Last Admin Trade Name Freq PRN Reason Stop Dose Admin Sodium Chloride 1,000 mls @ 150 mls/hr 06/21/20 09:15 06/21/20 09:25 Normal Saline IV 06/21/20 15:54 150 mls/hr .BOLUS ONE Administration Discontinued Medications Generic Name Dose Route Start Last Admin Trade Name Freq PRN Reason Stop Dose Admin Ceftriaxone Sodium 1 gm/ 50 mls @ 100 mls/hr 06/21/20 09:15 06/21/20 09:26 Sodium Chloride IV 06/21/20 09:44 100 mls/hr ONETIME ONE Administration - Re-Assessments/Exams Free Text/Narrative Re-Assessment/Exam: 06/21/20 10:42 Discussed patient case with Dr. Kapoor who agreed to accept the patient for observation admission. Departure - Departure Time of Disposition: 10:42 Disposition: Refer to Observation Condition: Fair Clinical Impression: Elevated troponin UTI (urinary tract infection) Qualifiers: Urinary tract infection type: acute cystitis Hematuria presence: without estefani turia Qualified Code(s): N30.00 - Acute cystitis without hematuria - Discharge Information *PRESCRIPTION DRUG MONITORING PROGRAM REVIEWED*: No *COPY OF PRESCRIPTION DRUG MONITORING REPORT IN PATIENT MIGUEL: No Forms: ED Department Discharge Sepsis Event Note (ED) - Focused Exam Vital Signs: Vital Signs Temp Pulse Resp BP Pulse Ox 06/21/20 07:51 97.4 F 77 26 H 155/71 H 95 - My Orders Last 24 Hours: My Active Orders 06/21/20 07:58 EKG Documentation Completion [RC] STAT 06/21/20 08:05 CULTURE URINE [RM] Stat 06/21/20 09:01 EKG Documentation Completion [RC] STAT 06/21/20 09:15 Sodium Chloride 0.9% [Normal Saline] 1,000 ml IV .BOLUS 06/21/20 10:15 Admission Diagnosis [ADT] Stat Admission Status [Patient Status] [ADT] Routine 06/21/20 12:10 EKG Documentation Completion [RC] STAT TROPONIN I [CHEM] Stat - Assessment/Plan Last 24 Hours: My Active Orders 06/21/20 07:58 EKG Documentation Completion [RC] STAT 06/21/20 08:05 CULTURE URINE [RM] Stat 06/21/20 09:01 EKG Documentation Completion [RC] STAT 06/21/20 09:15 Sodium Chloride 0.9% [Normal Saline] 1,000 ml IV .BOLUS 06/21/20 10:15 Admission Diagnosis [ADT] Stat Admission Status [Patient Status] [ADT] Routine 06/21/20 12:10 EKG Documentation Completion [RC] STAT TROPONIN I [CHEM] Stat
[2020-06-21 08:43] LABS: ANION GAP 13.4 mEq/L (7-13); CHLORIDE,CL 100 mmol/L (98-107); SODIUM,NA 136 mmol/L (136-145)
[2020-06-21] MEDS ORDERED: Lisinopril 20 MG Tab PO SCH (09:00)
[2020-06-21] MEDS ORDERED: Isosorbide Mononitrate 30 MG Tab.ER PO SCH (09:00)
[2020-06-21] MEDS ORDERED: Finasteride 5 MG Tab PO SCH (09:00)
[2020-06-21] MEDS ORDERED: cefTRIAXone 1 GM in Sodium Chloride 0.9% 50 ML IV ONE (09:15)
[2020-06-21] MEDS ORDERED: Sodium Chloride 0.9% 1,000 ML IV ONE (09:15)
[2020-06-21] MEDS ORDERED: Ondansetron 4 MG/2 ML SDV IVPUSH PRN (11:20)
[2020-06-21] MEDS ORDERED: Acetaminophen 325 MG Tab PO PRN (11:20)
[2020-06-21] MEDS ORDERED: Sodium Chloride 0.9% 10 ML Syringe FLUSH PRN (11:20)
--- NOTE | 2020-06-21 11:36 | PCM.HP ---
H&P History of Present Illness - General Date of Service: 06/21/20 Admit Problem/Dx: Admission Diagnosis/Problem Admission Diagnosis/Problem UTI, Urinary tract infectious disease Source of Information: Patient - History of Present Illness Initial Comments - Free Text/Narative: This is an 80-year-old man with medical history of atrial fibrillation, diabetes mellitus, hypertension, benign prostatic hypertrophy. The patient presented to the emergency room because of incontinence of urine which has been going on since yesterday. Also has associated weakness of the lower extremities. Denies any low back pain. Denies nausea or vomiting. Denies chest pain. No cough no wheezing. No fever and no chills - Related Data Allergies/Adverse Reactions: Allergies Allergy/AdvReac Type Severity Reaction Status Date / Time No Known Allergies Allergy Verified 06/21/20 11:24 Home Medications: Home Meds Doxazosin [Cardura] 4 mg PO BEDTIME 06/21/14 [History] Finasteride [Proscar] 5 mg PO DAILY 06/21/14 [History] Rosuvastatin [Crestor] 2.5 mg PO BEDTIME 06/21/14 [History] glyBURIDE [Glyburide] 2.5 mg PO DAILY 06/21/14 [History] Rivaroxaban [Xarelto] 20 mg PO BEDTIME 07/02/17 [History] Isosorbide Mononitrate [Imdur] 60 mg PO DAILY 05/29/19 [History] Metoprolol Succinate [Toprol XL 100mg] 100 mg PO DAILY 05/29/19 [History] Omeprazole 1 cap PO DAILY 06/21/20 [History] lisinopriL [Lisinopril] 1 tab PO DAILY 06/21/20 [History] Past Medical History HEENT History: Reports: None Cardiovascular History: Reports: Heart Failure, High Cholesterol, Hypertension Respiratory History: Reports: None, SOB Other Respiratory History: Pleural effusions Gastrointestinal History: Reports: None Genitourinary History: Reports: BPH, Other (See Below) Other Genitourinary History: recent UTI Musculoskeletal History: Reports: None Neurological History: Reports: None Psychiatric History: Reports: None Endocrine/Metabolic History: Reports: Diabetes, Type II Hematologic History: Reports: None Immunologic History: Reports: None Oncologic (Cancer) History: Reports: None Dermatologic History: Reports: None - Infectious Disease History Infectious Disease History: Reports: Chicken Pox, Measles, Mumps - Past Surgical History Head Surgeries/Procedures: Reports: None HEENT Surgical History: Reports: None Cardiovascular Surgical History: Reports: Other (See Below) Other Cardiovascular Surgeries/Procedures: angiogram 2017 Respiratory Surgical History: Reports: None Musculoskeletal Surgical History: Reports: Knee Replacement, Shoulder Surgery Social & Family History - Family History Family Medical History: Noncontributory Cardiac: Reports: Hypertension Oncologic: Reports: Bone - Tobacco Use Smoking Status *Q: Former Smoker Years of Tobacco use: 41 Packs/Tins Daily: 2 Used Tobacco, but Quit: Yes Month/Year Tobacco Last Used: 11/1997 - Caffeine Use Caffeine Use: Reports: Coffee - Recreational Drug Use Recreational Drug Use: No H&P Review of Systems - Review of Systems: Review Of Systems: See Below General: Reports: Malaise, Weakness, Fatigue HEENT: Reports: No Symptoms Pulmonary: Reports: No Symptoms Cardiovascular: Reports: No Symptoms Gastrointestinal: Reports: No Symptoms Genitourinary: Reports: Frequency, Urgency, Incontinence Musculoskeletal: Reports: No Symptoms Skin: Reports: No Symptoms Exam - Exam Exam: See Below - Vital Signs Vital Signs: Last Vital Signs Temp 36.8 C 06/21/20 11:22 Pulse 72 06/21/20 11:22 Resp 18 06/21/20 11:22 BP 152/93 H 06/21/20 11:22 Pulse Ox 97 06/21/20 11:22 Weight: 116.755 kg - Exam General: Alert, Oriented, Cooperative HEENT: PERRLA, Hearing Intact, Mucosa Moist & Lewis, Nares Patent, Normal Nasal Septum, Posterior Pharynx Clear, Conjunctiva Clear, EOMI, EACs Clear, TMs Clear Neck: Supple, Trachea Midline, 2 Lungs: Clear to Auscultation, Normal Respiratory Effort Cardiovascular: Regular Rate, Regular Rhythm GI/Abdominal Exam: Normal Bowel Sounds, Soft, Non-Tender, No Organomegaly, No Distention, No Abnormal Bruit, No Mass, Pelvis Stable Back Exam: Normal Inspection, Full Range of Motion, NT Extremities: Normal Inspection, Normal Range of Motion, Non-Tender, No Pedal Edema, Normal Capillary Refill - Patient Data Lab Results Last 24 hrs: Laboratory Results - last 24 hr 06/21/20 06/21/20 06/21/20 Range/Units 08:05 08:08 08:08 WBC 14.7 H (5.0-10.0) 10^3/uL RBC 5.57 (4.6-6.2) 10^6/uL Hgb 16.0 (14.0-18.0) g/dL Hct 46.3 (40.0-54.0) % MCV 83.1 D (80-100) fL MCH 28.7 (27.0-34.0) pg MCHC 34.6 (33.0-35.0) g/dL Plt Count 118 L (150-450) 10^3/uL Neut % (Auto) 86.8 H (42.2-75.2) % Lymph % (Auto) 5.3 L (20.5-50.1) % [place] % (Auto) 7.7 (2-8) % Eos % (Auto) 0.1 L (1.0-3.0) % Baso % (Auto) 0.1 (0.0-1.0) % PT 14.5 H (9.0-12.0) SEC INR 1.5 H (0.9-1.2) Sodium (136-145) mmol/L Potassium (3.5-5.1) mmol/L Chloride (98-107) mmol/L Carbon Dioxide (21-32) mmol/L Anion Gap (7-13) mEq/L BUN (7-18) mg/dL Creatinine (0.70-1.30) mg/dL Est Cr Clr Drug Dosing mL/min Estimated GFR (MDRD) BUN/Creatinine Ratio (No establ ref range) Glucose (74-99) mg/dL Calcium (8.5-10.1) mg/dL Total Bilirubin (0.2-1.0) mg/dL AST (15-37) U/L ALT (16-63) U/L Alkaline Phosphatase (46-116) U/L Troponin I (0.000-0.056) ng/mL B-Natriuretic Peptide (0-100) pg/ml Total Protein (6.4-8.2) g/dL Albumin (3.4-5.0) g/dL Globulin Albumin/Globulin Ratio Urine Color Dark yellow (YELLOW) Urine Appearance Turbid (CLEAR) Urine pH 6.0 (5.0-9.0) Ur Specific Bishop >= 1.030 (1.005-1.030) Urine Protein >=300 H (NEGATIVE) Urine Glucose (UA) Negative (NEGATIVE) Urine Ketones Negative (NEGATIVE) Urine Occult Blood Moderate H (NEGATIVE) Urine Nitrite Positive H (NEGATIVE) Urine Bilirubin Negative (NEGATIVE) Urine Urobilinogen 1.0 (0.2-1.0) mg/dL Ur Leukocyte Esterase Trace H (NEGATIVE) Urine RBC 5-10 H /HPF Urine WBC 50-75 H (0-5/HPF) /HPF Ur Epithelial Cells Rare (NOT SEEN) /HPF Amorphous Sediment Few (NOT SEEN) /HPF Urine Bacteria Many H (0-FEW/HPF) /HPF Urine Mucus Not seen (NOT SEEN) /LPF Ethyl Alcohol (0) mg/dL 06/21/20 06/21/20 Range/Units 08:08 08:08 WBC (5.0-10.0) 10^3/uL RBC (4.6-6.2) 10^6/uL Hgb (14.0-18.0) g/dL Hct (40.0-54.0) % MCV (80-100) fL MCH (27.0-34.0) pg MCHC (33.0-35.0) g/dL Plt Count (150-450) 10^3/uL Neut % (Auto) (42.2-75.2) % Lymph % (Auto) (20.5-50.1) % [place] % (Auto) (2-8) % Eos % (Auto) (1.0-3.0) % Baso % (Auto) (0.0-1.0) % PT (9.0-12.0) SEC INR (0.9-1.2) Sodium 136 (136-145) mmol/L Potassium 3.4 L (3.5-5.1) mmol/L Chloride 100 (98-107) mmol/L Carbon Dioxide 26 (21-32) mmol/L Anion Gap 13.4 H (7-13) mEq/L BUN 15 (7-18) mg/dL Creatinine 1.08 (0.70-1.30) mg/dL Est Cr Clr Drug Dosing 57.13 mL/min Estimated GFR (MDRD) > 60 BUN/Creatinine Ratio 13.9 (No establ ref range) Glucose 176 H (74-99) mg/dL Calcium 8.3 L (8.5-10.1) mg/dL Total Bilirubin 2.0 H (0.2-1.0) mg/dL AST 14 L (15-37) U/L ALT 13 L (16-63) U/L Alkaline Phosphatase 48 (46-116) U/L Troponin I 0.062 H* (0.000-0.056) ng/mL B-Natriuretic Peptide 910 H (0-100) pg/ml Total Protein 7.3 (6.4-8.2) g/dL Albumin 3.7 (3.4-5.0) g/dL Globulin 3.6 Albumin/Globulin Ratio 1.0 Urine Color (YELLOW) Urine Appearance (CLEAR) Urine pH (5.0-9.0) Ur Specific Bishop (1.005-1.030) Urine Protein (NEGATIVE) Urine Glucose (UA) (NEGATIVE) Urine Ketones (NEGATIVE) Urine Occult Blood (NEGATIVE) Urine Nitrite (NEGATIVE) Urine Bilirubin (NEGATIVE) Urine Urobilinogen (0.2-1.0) mg/dL Ur Leukocyte Esterase (NEGATIVE) Urine RBC /HPF Urine WBC (0-5/HPF) /HPF Ur Epithelial Cells (NOT SEEN) /HPF Amorphous Sediment (NOT SEEN) /HPF Urine Bacteria (0-FEW/HPF) /HPF Urine Mucus (NOT SEEN) /LPF Ethyl Alcohol < 3 (0) mg/dL Result Diagrams: 06/21/20 08:08 06/21/20 08:08 Problem List Initiated/Reviewed/Updated: Yes Orders Last 24hrs: Active Orders 24 hr Category Date Time Status Admission Diagnosis [ADT] Stat ADT 06/21/20 10:15 Ordered Admission Status [Patient Status] [ADT] Routine ADT 06/21/20 10:15 Active Patient Status [ADT] Routine ADT 06/21/20 11:20 Ordered Blood Glucose Check, Bedside [RC] TIDAC Care 06/21/20 11:31 Ordered Communication Order [RC] PRN Care 06/21/20 11:27 Active EKG Documentation Completion [RC] STAT Care 06/21/20 07:58 Active EKG Documentation Completion [RC] STAT Care 06/21/20 09:01 Active EKG Documentation Completion [RC] STAT Care 06/21/20 12:10 Active Intake and Output [RC] QSHIFT Care 07/25/20 11:22 Ordered Oxygen Therapy [RC] PRN Care 06/21/20 11:20 Ordered Up With Assistance [RC] ASDIRECTED Care 06/21/20 11:20 Ordered VTE/DVT Education [RC] PER UNIT ROUTINE Care 06/21/20 11:20 Ordered Vital Signs [RC] Q4H Care 06/21/20 11:20 Ordered OT Evaluation and Treatment [CONS] Routine Cons 06/21/20 11:20 Ordered PT Evaluation and Treatment [CONS] Routine Cons 06/21/20 11:20 Ordered Consistent Carbohydrate Diet [DIET] Diet 06/21/20 Lunch Ordered BASIC METABOLIC PANEL,BMP [CHEM] AM Lab 06/22/20 05:11 Ordered CBC W/O DIFF,HEMOGRAM [HEME] AM Lab 06/22/20 05:11 Ordered CULTURE URINE [RM] Stat Lab 06/21/20 08:05 Received Acetaminophen [Tylenol] Med 06/21/20 11:20 Ordered 650 mg PO Q4H PRN Doxazosin [Cardura] Med 06/21/20 21:00 Ordered 4 mg PO BEDTIME Finasteride [Proscar] Med 06/21/20 09:00 Ordered 5 mg PO DAILY Isosorbide Mononitrate [Imdur] Med 06/21/20 09:00 Ordered 60 mg PO DAILY Metoprolol Succinate [Toprol XL 100mg] Med 06/21/20 11:30 Ordered 100 mg PO DAILY Omeprazole Med 06/21/20 11:30 Ordered 1 cap PO DAILY Ondansetron [Zofran] Med 06/21/20 11:20 Ordered 4 mg IVPUSH Q6H PRN Rivaroxaban [Xarelto] Med 06/21/20 21:00 Ordered 20 mg PO BEDTIME Rosuvastatin [Crestor] Med 06/21/20 21:00 Ordered 2.5 mg PO BEDTIME Sodium Chloride 0.9% [Normal Saline] 1,000 ml Med 06/21/20 09:15 Active IV .BOLUS Sodium Chloride 0.9% [Saline Flush] Med 06/21/20 11:20 Ordered 10 ml FLUSH ASDIRECTED PRN lisinopriL [Prinivil] Med 06/21/20 09:00 Ordered 20 mg PO DAILY Saline Lock Insert [OM.PC] Routine Oth 06/21/20 11:20 Ordered Resuscitation Status Routine Resus Stat 06/21/20 11:20 Ordered Medication Orders Acetaminophen (Tylenol) 650 mg PO Q4H PRN PRN Reason: Pain (Mild 1-3)/fever Finasteride (Proscar) 5 mg PO DAILY KI Sodium Chloride (Normal Saline) 1,000 mls @ 150 mls/hr IV .BOLUS ONE Stop: 06/21/20 15:54 Last Admin: 06/21/20 09:25 Dose: 150 mls/hr Documented by: UELMNMAURICIO Isosorbide Mononitrate (Imdur) 60 mg PO DAILY KI Lisinopril (Prinivil) 20 mg PO DAILY KI Non-Formulary Medication (Doxazosin [Cardura]) 4 mg PO BEDTIME KI Non-Formulary Medication (Metoprolol Succinate [Toprol Xl 100mg]) 100 mg PO DAILY KI Non-Formulary Medication (Rivaroxaban [Xarelto]) 20 mg PO BEDTIME KI Non-Formulary Medication (Rosuvastatin [Crestor]) 2.5 mg PO BEDTIME KI Omeprazole (Omeprazole) mg PO DAILY KI Ondansetron HCl (Zofran) 4 mg IVPUSH Q6H PRN PRN Reason: Nausea/Vomiting Sodium Chloride (Saline Flush) 10 ml FLUSH ASDIRECTED PRN PRN Reason: Keep Vein Open Assessment/Plan Comment:: Assessment/plan: #. Probable urinary tract infection Patient is having frequency or micturition and urgency. Has been incontinent of urine #. Rule out urinary retention Patient is having incontinence of urine I'll like to rule out overflow incontinence #. Atrial fibrillation/chronic anticoagulation On Xeralto #. Diabetes mellitus Oral hypoglycemic agent Plan: Admit patient to medical floor Empiric antibiotics with intravenous ceftriaxone Check postvoiding residual Check troponin.
[2020-06-21] MEDS: Metoprolol Succinate 50 MG Tab.ER PO SCH (12:33)
[2020-06-21] MEDS: Omeprazole 20 MG Cap.CR PO SCH (12:34)
[2020-06-21] MEDS: Lisinopril 20 MG Tab PO SCH (12:40)
[2020-06-21] MEDS: Isosorbide Mononitrate 30 MG Tab.ER PO SCH (12:41)
[2020-06-21] MEDS: Finasteride 5 MG Tab PO SCH (13:30)
[2020-06-21] MEDS ORDERED: Rosuvastatin 10 MG Tab PO SCH (21:00)
[2020-06-21] MEDS ORDERED: Doxazosin 2 MG Tab PO SCH (21:00)
[2020-06-21] MEDS ORDERED: Rivaroxaban 10 MG Tab PO SCH (21:00)
[2020-06-22] MEDS: Omeprazole 20 MG Cap.CR PO SCH (05:35)
[2020-06-22 07:22] VITALS: BP 129/74
[2020-06-22] MEDS: Metoprolol Succinate 50 MG Tab.ER PO SCH (09:57)
[2020-06-22] MEDS: Finasteride 5 MG Tab PO SCH (09:58)
[2020-06-22] MEDS: Isosorbide Mononitrate 30 MG Tab.ER PO SCH (09:58)
[2020-06-22] MEDS: Lisinopril 20 MG Tab PO SCH (09:59)
[2020-06-22 10:00] VITALS: PULSE 74
[2020-06-22] MEDS ORDERED: cefTRIAXone 1 GM Vial IM SCH (10:00)
[2020-06-22] MEDS ORDERED: cefTRIAXone 1 GM in Sodium Chloride 0.9% 50 ML IV SCH (10:00)
--- NOTE | 2020-06-22 10:22 | PCM.DCSUM1 ---
Discharge Summary - Hospital Course Free Text/Narrative:: Patient is an 80-year-old man with medical history of atrial fibrillation, diabetes mellitus, hypertension, benign prostatic hypertrophy. The patient presented to the emergency room because of incontinence of urine associated weakness of the lower extremities. Denies any low back pain. The patient was found to have urinary tract infection. Urinalysis was suggestive. He was started on intravenous ceftriaxone and at discharge switch to oral Vantin. He is feeling better and will be discharged home. Patient is to continue with medications for prostate enlargement, Cardura and finasteride #. Probable urinary tract infection Patient was having frequency or micturition and urgency. Was incontinent of urine #. Ruled out urinary retention #. Atrial fibrillation/chronic anticoagulation On Xeralto #. Diabetes mellitus Oral hypoglycemic agent - Discharge Data Discharge Date: 06/22/20 Discharge Disposition: Home, Self-Care 01 Condition: Good - Referral to Home Health Primary Care Physician: PCP None - Patient Summary/Data Consults: Consultations 06/21/20 11:20 OT Evaluation and Treatment [CONS] Routine PT Evaluation and Treatment [CONS] Routine - Patient Instructions Diet: Usual Diet as Tolerated Activity: As Tolerated Driving: May Drive Today Other/Special Instructions: F/up with PMD within one week - Discharge Plan *PRESCRIPTION DRUG MONITORING PROGRAM REVIEWED*: No *COPY OF PRESCRIPTION DRUG MONITORING REPORT IN PATIENT MIGUEL: No Prescriptions/Med Rec: Cefpodoxime [Vantin] 200 mg PO BID 7 Days tablet Home Medications: Home Meds Doxazosin [Cardura] 4 mg PO BEDTIME 06/21/14 [History] Finasteride [Proscar] 5 mg PO DAILY 06/21/14 [History] Rosuvastatin [Crestor] 2.5 mg PO BEDTIME 06/21/14 [History] glyBURIDE [Glyburide] 2.5 mg PO DAILY 06/21/14 [History] Rivaroxaban [Xarelto] 20 mg PO BEDTIME 07/02/17 [History] Isosorbide Mononitrate [Imdur] 60 mg PO DAILY 05/29/19 [History] Metoprolol Succinate [Toprol XL 100mg] 100 mg PO DAILY 05/29/19 [History] Omeprazole 1 cap PO DAILY 06/21/20 [History] lisinopriL [Lisinopril] 1 tab PO DAILY 06/21/20 [History] Cefpodoxime [Vantin] 200 mg PO BID 7 Days tablet 06/22/20 [Rx] Patient Handouts: Cefpodoxime tablets, Urinary Tract Infection, Adult, Easy-to- Read Referrals: Damian Aguilera MD [Physician] - - Discharge Summary/Plan Comment DC Time >30 min.: No - Review of Systems General: Reports: No Symptoms Pulmonary: Reports: No Symptoms Cardiovascular: Reports: No Symptoms Gastrointestinal: Reports: No Symptoms Musculoskeletal: Reports: No Symptoms Skin: Reports: No Symptoms - Patient Data Vitals - Most Recent: Last Vital Signs Temp 37.0 C 06/22/20 07:21 Pulse 74 06/22/20 09:57 Resp 18 06/22/20 07:21 BP 129/74 06/22/20 09:59 Pulse Ox 95 06/22/20 07:21 Weight - Most Recent: 116.755 kg I&O - Last 24 hours: Intake & Output 06/21/20 06/22/20 06/22/20 22:59 06:59 14:59 Intake Total 1720 250 Output Total 200 475 Balance 1520 -475 250 Lab Results - Last 24 hrs: Laboratory Results - last 24 hr 06/21/20 06/21/20 06/21/20 Range/Units 12:02 12:10 17:00 WBC (5.0-10.0) 10^3/uL RBC (4.6-6.2) 10^6/uL Hgb (14.0-18.0) g/dL Hct (40.0-54.0) % MCV (80-100) fL MCH (27.0-34.0) pg MCHC (33.0-35.0) g/dL Plt Count (150-450) 10^3/uL Sodium (136-145) mmol/L Potassium (3.5-5.1) mmol/L Chloride (98-107) mmol/L Carbon Dioxide (21-32) mmol/L Anion Gap (7-13) mEq/L BUN (7-18) mg/dL Creatinine (0.70-1.30) mg/dL Est Cr Clr Drug Dosing mL/min Estimated GFR (MDRD) Glucose (74-99) mg/dL POC Glucose 147 H 130 H (83-110) mg/dl Calcium (8.5-10.1) mg/dL Troponin I 0.048 (0.000-0.056) ng/mL 06/22/20 06/22/20 06/22/20 Range/Units 05:25 05:25 07:48 WBC 13.5 H (5.0-10.0) 10^3/uL RBC 5.20 (4.6-6.2) 10^6/uL Hgb 15.0 (14.0-18.0) g/dL Hct 44.1 (40.0-54.0) % MCV 84.8 (80-100) fL MCH 28.8 (27.0-34.0) pg MCHC 34.0 (33.0-35.0) g/dL Plt Count 124 L (150-450) 10^3/uL Sodium 138 (136-145) mmol/L Potassium 4.0 (3.5-5.1) mmol/L Chloride 102 (98-107) mmol/L Carbon Dioxide 30 (21-32) mmol/L Anion Gap 10.0 (7-13) mEq/L BUN 17 (7-18) mg/dL Creatinine 1.31 H (0.70-1.30) mg/dL Est Cr Clr Drug Dosing 47.10 mL/min Estimated GFR (MDRD) 53 Glucose 142 H (74-99) mg/dL POC Glucose 150 H (83-110) mg/dl Calcium 8.1 L (8.5-10.1) mg/dL Troponin I (0.000-0.056) ng/mL Med Orders - Current: Current Medications Acetaminophen (Tylenol) 650 mg PO Q4H PRN PRN Reason: Pain (Mild 1-3)/fever Doxazosin Mesylate (Cardura) 4 mg PO BEDTIME [facility] Last Admin: 06/21/20 21:29 Dose: 4 mg Documented by: Finasteride (Proscar) 5 mg PO DAILY [facility] Last Admin: 06/22/20 09:58 Dose: 5 mg Documented by: Ceftriaxone Sodium 1 gm/ (Sodium Chloride) 50 mls @ 100 mls/hr IV Q24H [facility] Last Admin: 06/22/20 09:59 Dose: 100 mls/hr Documented by: Isosorbide Mononitrate (Imdur) 60 mg PO DAILY [facility] Last Admin: 06/22/20 09:58 Dose: 60 mg Documented by: Lisinopril (Prinivil) 20 mg PO DAILY [facility] Last Admin: 06/22/20 09:59 Dose: 20 mg Documented by: Metoprolol Succinate (Toprol Xl) 100 mg PO DAILY [facility] Last Admin: 06/22/20 09:57 Dose: 100 mg Documented by: Omeprazole (Omeprazole) 20 mg PO ACBREAKFAST [facility] Last Admin: 06/22/20 05:35 Dose: 20 mg Documented by: Ondansetron HCl (Zofran) 4 mg IVPUSH Q6H PRN PRN Reason: Nausea/Vomiting Rivaroxaban (Xarelto) 20 mg PO BEDTIME [facility] Last Admin: 06/21/20 21:30 Dose: 20 mg Documented by: Rosuvastatin Calcium (Crestor) 2.5 mg PO BEDTIME [facility] Last Admin: 06/21/20 21:30 Dose: 2.5 mg Documented by: Sodium Chloride (Saline Flush) 10 ml FLUSH ASDIRECTED PRN PRN Reason: Keep Vein Open Discontinued Medications Finasteride (Proscar) 5 mg PO DAILY [facility] Last Admin: 06/21/20 14:53 Dose: Not Given Documented by: Sodium Chloride (Normal Saline) 1,000 mls @ 150 mls/hr IV .BOLUS ONE Stop: 06/21/20 15:54 Last Admin: 06/21/20 09:25 Dose: 150 mls/hr Documented by: Ceftriaxone Sodium 1 gm/ (Sodium Chloride) 50 mls @ 100 mls/hr IV ONETIME ONE Stop: 06/21/20 09:44 Last Admin: 06/21/20 09:26 Dose: 100 mls/hr Documented by: Isosorbide Mononitrate (Imdur) 60 mg PO DAILY [facility] Last Admin: 06/21/20 14:51 Dose: Not Given Documented by: Lisinopril (Prinivil) 20 mg PO DAILY [facility] Last Admin: 06/21/20 14:51 Dose: Not Given Documented by: - Exam General: Reports: Alert, Oriented, Cooperative HEENT: Reports: Pupils Equal, Pupils Reactive, EOMI, Mucous Membr. Moist/[place] Neck: Reports: Supple Lungs: Reports: Clear to Auscultation, Normal Respiratory Effort GI/Abdominal Exam: Normal Bowel Sounds, Soft, Non-Tender, No Organomegaly, No Distention, No Abnormal Bruit, No Mass, Pelvis Stable Extremities: Normal Inspection, Normal Range of Motion, Non-Tender, No Pedal Edema, Normal Capillary Refill
--- NOTE | 2020-06-24 14:09 | EKG ---
06/21/2020 - CHRISTEL GARCIA A - TIME: 1300. EKG showed normal sinus rhythm. It also showed nonsustained wide complex tachycardia. There is nonspecific ST-segment changes. [facility] /[id number]
== END 2020-06-22 11:05 | disposition home or self-care (01) ==
LOC: DL.ED 07:30 → DL.MS 10:15 → DL.ED 10:40
PROVIDERS: ADMIT Hospitalist; ATTEND Hospitalist
DX: R32 Unspecified urinary incontinence (principal); R53.1 Weakness; I11.0 Hypertensive heart disease with heart failure; I50.9 Heart failure, unspecified; E11.9 Type 2 diabetes mellitus without complications; R79.89 Other specified abnormal findings of blood chemistry; I48.91 Unspecified atrial fibrillation; N40.0 Benign prostatic hyperplasia without lower urinary tract symptoms; Z79.899 Other long term (current) drug therapy; Z79.01 Long term (current) use of anticoagulants; Z79.84 Long term (current) use of oral hypoglycemic drugs; Z87.891 Personal history of nicotine dependence
CPT/HCPCS: 36415; 51798; 80048; 80053; 80307; 81001; 82962; 83880; 84484; 85025; 85027; 85610; 87086; 87088; 87186; 93005; 96361; 96365; 99285; A9270; J0696; J7030; J7050; 96376; 99284; G0378

== ENCOUNTER 2022-04-04 12:14 | Emergency (ER) | payer MEDICARE, BC ==
[2022-04-04 12:26] VITALS: BP 141/102; PULSE 94
[2022-04-04] MEDS ORDERED: Oxymetazoline 0.05% Nasal Spray 30 ML Bottle NAS ONE (12:30)
== END 2022-04-04 13:39 | disposition home or self-care (01) ==
LOC: DL.ED 12:14
DX: R04.0 Epistaxis (principal); I11.0 Hypertensive heart disease with heart failure; I50.9 Heart failure, unspecified; E78.00 Pure hypercholesterolemia, unspecified; E11.9 Type 2 diabetes mellitus without complications; Z79.899 Other long term (current) drug therapy
CPT/HCPCS: 30903; 99282; 99283; A9270

== ENCOUNTER 2023-05-20 06:20 | Day surgery (SDC) | payer MEDICARE, BC ==
[~2023-05-20 06:20] MED LIST: Acetaminophen 325 MG Tab PO PRN; Acetaminophen/Codeine 300-30 MG Tab PO PRN; Cataract Ophth Solution EYELF ONE; Moxifloxacin 0.5% Ophth Soln 3 ML Bottle EYELF ONE; Ondansetron 4 MG/2 ML SDV IVPUSH PRN; Phenylephrine 10% Ophth Soln 5 ML Bot EYELF PRN; Povidone-Iodine 5% Sterile Ophth Soln 30 ML Bottle EYELF ONE; Proparacaine 0.5% Ophth Soln 15 ML Bottle EYELF ONE; Sodium Chloride 0.9% 10 ML Syringe FLUSH PRN; Timolol Maleate 0.5% Ophth Soln 5 ML Bottle EYELF ONE; Tropicamide 1% Ophth Soln 15 ML Bottle EYELF ONE
[2023-05-20] MEDS ORDERED: Dexamethasone 4 MG/ML SDV IV ONE (06:21)
[2023-05-20] MEDS ORDERED: Midazolam 1 MG/ML 2 ML SDV IV ONE (06:21)
[2023-05-20] MEDS ORDERED: Proparacaine 0.5% Ophth Soln 15 ML Bottle ONE (06:26)
[2023-05-20] MEDS ORDERED: Povidone-Iodine 5% Sterile Ophth Soln 30 ML Bottle EYELF ONE (07:55)
[2023-05-20] MEDS ORDERED: Apraclonidine 0.5% Ophth Soln 5 ML Bot EYELF ONE (07:55)
[2023-05-20] MEDS ORDERED: Proparacaine 0.5% Ophth Soln 15 ML Bottle EYELF ONE (07:55)
[2023-05-20] MEDS ORDERED: Vancomycin 500 MG SDV EYELF ONE (07:56)
[2023-05-20] MEDS ORDERED: Diclofenac Sodium 0.1% Ophth Soln 5 ML Bottle EYELF ONE (07:56)
[2023-05-20] MEDS ORDERED: Chondroitin Sulfate/Hyaluronate Sodium Ophth Inj 0.75 ML Syringe EYELF ONE (07:56)
[2023-05-20] MEDS ORDERED: Balanced Salt Solution Ophth Irrig 500 ML Bottle IOCULAR ONE (07:56)
[2023-05-20] MEDS ORDERED: Dexamethasone/Tobramycin 0.1-0.3% Ophth Oint 3.5 GM Tube EYELF ONE (07:56)
[2023-05-20] MEDS ORDERED: Lidocaine 1% 30 ML SDV ONE (07:57)
[2023-05-20 08:39] VITALS: BP 137/94; PULSE 105
== END 2023-05-20 08:32 | disposition home or self-care (01) ==
LOC: DL.SDS 06:20
PROVIDERS: ATTEND Ophthalmology
DX: E11.36 Type 2 diabetes mellitus with diabetic cataract (principal); H25.812 Combined forms of age-related cataract, left eye; I11.0 Hypertensive heart disease with heart failure; I50.9 Heart failure, unspecified; N40.0 Benign prostatic hyperplasia without lower urinary tract symptoms; F41.9 Anxiety disorder, unspecified; E66.09 Other obesity due to excess calories; E78.5 Hyperlipidemia, unspecified; I48.91 Unspecified atrial fibrillation; M19.90 Unspecified osteoarthritis, unspecified site; G47.30 Sleep apnea, unspecified; Z98.890 Other specified postprocedural states; Z87.891 Personal history of nicotine dependence; Z88.2 Allergy status to sulfonamides; Z68.36 Body mass index [BMI] 36.0-36.9, adult
CPT/HCPCS: 00142; 66984; A9270; J1100; J2250; J3370; V2632; J3490

== ENCOUNTER 2023-06-08 06:26 | Day surgery (SDC) | payer MEDICARE, BC ==
[2023-06-08] MEDS ORDERED: Cataract Ophth Solution EYERT ONE (06:30)
[2023-06-08] MEDS ORDERED: Sodium Chloride 0.9% 10 ML Syringe FLUSH PRN (06:30)
[2023-06-08] MEDS ORDERED: Acetaminophen 325 MG Tab PO PRN (06:30)
[2023-06-08] MEDS ORDERED: Proparacaine 0.5% Ophth Soln 15 ML Bottle EYERT ONE ×2 (06:30→08:06)
[2023-06-08] MEDS ORDERED: Timolol Maleate 0.5% Ophth Soln 5 ML Bottle EYERT ONE (06:30)
[2023-06-08] MEDS ORDERED: Ondansetron 4 MG/2 ML SDV IVPUSH PRN (06:30)
[2023-06-08] MEDS ORDERED: Phenylephrine 10% Ophth Soln 5 ML Bot EYERT PRN (06:30)
[2023-06-08] MEDS ORDERED: Tropicamide 1% Ophth Soln 15 ML Bottle EYERT ONE (06:30)
[2023-06-08] MEDS ORDERED: Povidone-Iodine 5% Sterile Ophth Soln 30 ML Bottle EYERT ONE ×2 (06:30→08:09)
[2023-06-08] MEDS ORDERED: Acetaminophen/Codeine 300-30 MG Tab PO PRN (06:30)
[2023-06-08] MEDS ORDERED: Moxifloxacin 0.5% Ophth Soln 3 ML Bottle EYERT ONE (06:30)
[2023-06-08] MEDS ORDERED: Proparacaine 0.5% Ophth Soln 15 ML Bottle ONE (06:37)
[2023-06-08] MEDS ORDERED: Apraclonidine 0.5% Ophth Soln 5 ML Bot EYERT ONE (08:09)
[2023-06-08] MEDS ORDERED: Tobramycin 0.3% Ophth Oint 3.5 GM Tube EYERT ONE (08:10)
[2023-06-08] MEDS ORDERED: Diclofenac Sodium 0.1% Ophth Soln 5 ML Bottle EYERT ONE (08:10)
[2023-06-08] MEDS ORDERED: Lidocaine 1% 30 ML SDV ONE (08:11)
[2023-06-08] MEDS ORDERED: Balanced Salt Solution Ophth Irrig 500 ML Bottle IOCULAR ONE (08:11)
[2023-06-08] MEDS ORDERED: Vancomycin 500 MG SDV EYERT ONE (08:12)
[2023-06-08] MEDS ORDERED: Chondroitin Sulfate/Hyaluronate Sodium Ophth Inj 0.75 ML Syringe EYERT ONE (08:12)
[2023-06-08 08:53] VITALS: BP 123/83; PULSE 82
== END 2023-06-08 09:10 | disposition home or self-care (01) ==
LOC: DL.SDS 06:26
PROVIDERS: ATTEND Ophthalmology
DX: E11.36 Type 2 diabetes mellitus with diabetic cataract (principal); H25.811 Combined forms of age-related cataract, right eye; F41.9 Anxiety disorder, unspecified; I48.91 Unspecified atrial fibrillation; G47.33 Obstructive sleep apnea (adult) (pediatric); I10 Essential (primary) hypertension; M19.90 Unspecified osteoarthritis, unspecified site; E03.9 Hypothyroidism, unspecified; E66.09 Other obesity due to excess calories; Z87.891 Personal history of nicotine dependence; Z88.1 Allergy status to other antibiotic agents; Z68.36 Body mass index [BMI] 36.0-36.9, adult
CPT/HCPCS: 00142; 66984; A9270; J3370; V2632; J3490